=== PATIENT | male | born 1985 | race Caucasian/White ===

== ENCOUNTER 2023-04-30 06:20 | Emergency (ER) | payer SELFPAY ==
[~2023-04-30] VITALS: Ht 180.3 cm; Wt 68.0 kg
[2023-04-30 06:31] VITALS: BP 134/84; PULSE 74; RESP 18; TEMP 98.4; O2SAT 98
[2023-04-30] MEDS ORDERED: CATAPRES ONE (07:22)
[2023-04-30] MEDS ORDERED: TORADOL ONE (07:22)
[2023-04-30] MEDS: CATAPRES PO STA (07:25)
[2023-04-30] MEDS: TORADOL IM STA (07:25)
[2023-04-30 07:26] VITALS: BP 132/76; PULSE 89; RESP 18; TEMP 98.4; O2SAT 98
== END 2023-04-30 07:35 | disposition home or self-care (01) ==
LOC: ER 06:20
DX: F11.93 Opioid use, unspecified with withdrawal (principal); G89.29 Other chronic pain
CPT/HCPCS: 99283; 96372; J1885